=== PATIENT | female | born 1965 | race Caucasian/White ===

== ENCOUNTER → 2025-01-14 08:13 | Outpatient (REF) | payer BC, SELFPAY | LOC: HWWDC 08:13 | PROVIDERS: ATTENDING PHYSICIAN Family Medicine | DX: Z12.31 Encounter for screening mammogram for malignant neoplasm of breast (principal) | CPT/HCPCS: 77063; 77067 ==

== ENCOUNTER → 2025-01-28 09:39 | Outpatient (REF) | payer BC, SELFPAY | LOC: WDC 09:39 | PROVIDERS: ATTENDING PHYSICIAN Family Medicine | DX: R92.8 Other abnormal and inconclusive findings on diagnostic imaging of breast (principal) | CPT/HCPCS: 76642 ==

== ENCOUNTER → 2025-05-21 10:42 | Outpatient (REF) | payer BC, SELFPAY | LOC: RAD 10:42 | PROVIDERS: ATTENDING PHYSICIAN Physician Assistant Medical | DX: M54.2 Cervicalgia (principal); M54.6 Pain in thoracic spine | CPT/HCPCS: 72050; 72072 ==

== ENCOUNTER 2025-06-18 07:48 | Outpatient (RCR) | payer BC, SELFPAY | END 2025-06-18 13:41 | disposition home or self-care (01) | LOC: RPT 07:48 | PROVIDERS: ATTENDING PHYSICIAN Physician Assistant Medical | DX: M54.2 Cervicalgia (principal); M54.6 Pain in thoracic spine; Z73.6 Limitation of activities due to disability; M25.512 Pain in left shoulder; M47.812 Spondylosis without myelopathy or radiculopathy, cervical region | CPT/HCPCS: 97010; 97110; 97112; 97140; 97161 ==